=== PATIENT | male | born 1970 | race Two or more races ===

== ENCOUNTER 2025-03-03 08:58 | Observation (INO) ==
[2025-03-03] MEDS: MAGNESIUM SULFATE 1GM / D5W BAG IV ONE (09:23)
[2025-03-03] MEDS: MAGNESIUM SULFATE / D5W 1 GM/100 ML BAG IV SCH (09:23)
[2025-03-03] MEDS: ACETAMINOPHEN 1,000 MG/100 ML VIAL IV STA (09:23)
[2025-03-03 09:30] LABS: Hematocrit (blood only) 44.8 % (42.0-52.0); Hemoglobin 15.6 g/dL (14.0-18.0); Immature Granulocytes # (auto) 0.06 K/uL (0.01-0.20); Immature Granulocytes % (auto) 0.4 %; Mean Corpuscular Hemoglobin 29.1 pg (25.0-34.0); Mean Corpuscular Volume 83.6 fL (80.0-100.0); Platelet Count 237 K/uL (130-400); RDW Standard Deviation 36.8 fL (36.4-46.3); Red Blood Count 5.36 M/uL (4.70-6.10); White Blood Count 16.82 K/ul (4.8-10.8)
[2025-03-03 09:49] LABS: Alanine Aminotransferase 20.0 U/L (7-52); Albumin Globulin Ratio 1.8 (0.9-2); Albumin Level 4.8 gm/dl (3.4-5.0); Alkaline Phosphatase 57.0 U/L (34-104); Anion Gap 11.0 (3-11); Bilirubin,Total 1.1 mg/dl (0.2-1.0); Blood Urea Nitrogen 10.0 mg/dl (6-23); Calcium 8.9 mg/dl (8.6-10.3); Carbon Dioxide 24.0 mmol/L (21-32); Chloride 97.0 mmol/L (98-107); Creatinine Clr Calc Pharmacy 105.2 ml/min; Globulin 2.6 gm/dl (2.5-4.0); Glucose 160.0 mg/dl (70-99(Fasting)); Lipase 24.0 U/L (11-82); Potassium 3.5 mmol/L (3.5-5.1); Sodium 132.0 mmol/L (136-145); Total Protein 7.4 gm/dl (6.0-8.3)
[2025-03-03] MEDS: OPTIRAY 320 100ml IV ONE (10:06)
--- NOTE | 2025-03-03 10:27 | CT Scan Report ---
Clinical History: Abdominal pain Technique: Axial computed tomography images were obtained of the abdomen and pelvis after the administration of intravenous contrast. No prior CT is available for comparison. Findings: The liver is overall of normal size, attenuation, and contour with no sign of cirrhosis or significant fatty infiltration. No liver mass lesion is seen. The portal vein is patent. The gallbladder appears unremarkable. No bile duct dilatation is noted. The spleen is of normal size. There is diminished enhancement of the anterior half of the spleen, likely due to an infarct. The pancreas appears normal with no sign of acute or chronic pancreatitis and no mass lesion noted. The pancreatic duct is of normal caliber. The adrenal glands appear unremarkable. No definite renal or proximal ureteral calculi are seen on this contrast-enhanced study. There is no hydronephrosis or perinephric stranding. No renal mass lesion is identified. There is a small 7 mm right renal cyst The aorta is of normal caliber. No abdominal adenopathy is seen. The stomach appears normal. There is no sign of small bowel obstruction. The colon appears unremarkable. The appendix appears normal also. No free intraperitoneal fluid or air is identified. No distal ureteral or bladder calculi are seen. No bladder mass lesion is evident. The iliac arteries are of normal caliber. No pelvic adenopathy is noted. There are small bilateral inguinal hernias containing only fat The lungs bases appear clear. No fracture is identified. No focal osseous lesion is seen Impression: 1. Splenic infarct 2. Small right renal cyst 3. Bilateral inguinal hernias containing only fat ACT 112: Positive. There are findings on this exam that require communication between the performing entity and the patient following Patient Test Result Information Act ([place] ACT 112) guidelines. Electronically signed by Rl Mojica 03-03-2025 10:26 AM
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
[2025-03-03 11:22] LABS: Appearance Urine Clear (Clear); Glucose Urine UA Negative (Negative)
[2025-03-03] MEDS: ALUMINUM/MAGNESIUM/SIMETH (MAALOX MAX) 30 ML UDC PO STA (11:30)
[2025-03-03] MEDS ORDERED: HEPARIN SOD (PORCINE) 1000 UNIT/ML IV ONE (11:40)
[2025-03-03] MEDS: HEPARIN 25000 UNIT/500 ML D5W 25,000 UNITS/500 ML BAG IV SCH (11:43)
[2025-03-03] MEDS: Heparin IV Adult Wt-Based Standard w/ INITIAL Bolus Protocol IV STA (11:43)
[2025-03-03] MEDS: STAT IV Infusion **Titration per Protocol STA (11:43)
[2025-03-03] MEDS: HEPARIN SOD (PORCINE) 1000 UNIT/ML IV ONE (11:43)
[2025-03-03] MEDS ORDERED: ONDANSETRON INJ 2 MG/ML 2 ML VIAL IV PRN (12:16)
--- NOTE | 2025-03-03 12:28 | History & Physical Report ---
Date of Service March 03, 2025 Assessment & Plan (1) Atrial fibrillation with rapid ventricular response: Plan: -given cardizem 20mg IV bolus -started on cardizem drip -heparin drip -echo -cardiology consulted (2) Splenic infarct: Plan: -likely 2nd to afib -heparin drip started (3) Abdominal distension (gaseous): Plan: -improved with miralax, simethicone, BM History of Present Illness Chief Complaint: Abdominal pain Primary Care Provider: NO PCP Pt is a 54 y/o male with no significant PMH who presents with 1 day history of abdominal pain with patient describing symptoms as "feeling gassy." In the ER his WBC was 16k with lactic acid of 2.6. His EKG showed afib with RVR @160. Pt denies any chest pain, SOB, or palpitations. He had a CT a/p which showed splenic infarct. He was started on heparin drip along with given cardizem bolus and started on cardizem drip. 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 HENT: Negative for neck pain/stiffness, headache, congestion, sore throat, swelling. EYES: Negative for discharge/pain or vision changes. RESP: Negative for cough/hemoptysis and shortness of breath. CV: Negative chest pain, difficulty breathing, palpitations. ABD: Negative pain, nausea, vomiting. : Negative increase frequency, dysuria, blood in urine or stool. MUSC: Negative for muscle aches, edema. SKIN: Negative rash, lesions/sores. NEURO: Negative headache, dizziness, weakness. Physical Exam Physical Exam: GENERAL APPEARANCE NAD, activity normal for age, well developed/ well nourished, no cyanosis, pallor, or diaphoresis. EYES lids/conjunctiva normal. EARS/NOSE/THROAT Mucous membranes moist, nares normal, lips/teeth normal uvula midline without oral pharyngeal erythema, exudate or swelling TMs normal bilaterally. No lymphangitis/lymphedema. HEAD/NECK normocephalic atraumatic, no facial trauma, neck is supple. RESPIRATORY respiratory effort normal, speaks in full sentences, no tripod position, no accessory muscle use. Lungs clear to auscultation without rhonchi, wheezes, rales CARDIAC Regular rate and rhythm, no edema. ABDOMINAL Soft, ND/NT. No evidence of fluid wave. No pulsatile masses on exam, rebound tenderness, Grier sign or pain over Mcburney's point. MUSCLES/EXTREMITIES No abnormal range of motion, no swelling. SKIN Warm, pink and dry. No rashes, dermatoses, petechiae or lesions. NEUROLOGICAL Speech is clear and appropriate. Normal level of consciousness. Gait and coordination are normal. 5/5 strength in all extremities. PSYCH Normal mood and affect. Judgement/competence is appropriate Results & Data Results & Data Vital Signs (Past 12 Hours) Vital Signs Temp Pulse Resp BP Pulse Ox O2 Del Method 03/03/25 11:00 122 H 24 91 Room Air 03/03/25 11:00 170/109 H 03/03/25 09:13 163 H 03/03/25 09:03 36.7 C 159 H 20 166/93 H 97 Room Air PG Care Time/CCT Total # of Minutes Spent Total Time Spent with Patient: Total time spent is greater than 50% in coordination of care (as documented) at patient's floor/unit and/or counseling patient: Coding Level of Care Code 03603 INT INP/OBS CARE 2/55MIN Diagnoses Atrial fibrillation with rapid ventricular response I48.91 Splenic infarct D73.5 Abdominal distension (gaseous) R14.0
[2025-03-03] MEDS ORDERED: MoRPHine SULFATE 4 MG/ML 1 ML CARP\\VIAL IV PRN (12:50)
[2025-03-03] MEDS: SODIUM CHLORIDE 0.9% 1,000 ML IV SCH (13:04)
[2025-03-03] MEDS: SIMETHICONE 40 MG/0.6 ML 30ML PO ONE (13:55)
--- NOTE | 2025-03-03 15:44 | XCELERA ---
[id number] [id number]
--- NOTE | 2025-03-03 15:45 | Cardiology Consultation ---
Date of Consultation March 03, 2025 Assessment & Plan (1) Atrial fibrillation with rapid ventricular response: (2) Splenic infarct: (3) Hypertension: Plan ASSESSMENT/PLAN: 1. Atrial fibrillation with rapid ventricular response: Asymptomatic. Based on some of his history, likely present for at least 5 days with elevated heart rate prior to exercise. He specifically stated he does not want to use beta-leidy. Diltiazem drip has offered heart rate improvement. Start diltiazem 30 mg p.o. every 6 hours and titrate upward oral medication as necessary for heart rate control with hopes of discontinuing diltiazem drip. We discussed treatment strategies but given onset likely greater than 48 hours, recommend rate control for now. Recommend anticoagulation therapy. Likely had embolic event with splenic infarct. Check TSH. Echo with low normal systolic function in the midst of A-fib with RVR. 2. Splenic infarct: Likely due to atrial fibrillation with embolic event. On heparin drip now. As per hospitalist service. 3. Hypertension: Blood pressure elevated. May be related to pain but also has baseline mild hypertension per his report. Diltiazem as above. Can also add MAGALI inhibitor or ARB if needed after titration of calcium channel leidy. Low- sodium diet. 4. Disposition: Cardiology will continue to follow. Patient care communicated with primary hospitalist, Dr. Cleveland. Thank you for allowing me to participate in the care of your patient. Please call for any other questions or concerns. Sincerely, Carlo Linton M.D. History of Present Illness Reason for Consultation: "A-fib with RVR" Requesting Physician: Fidel Cleveland MD Attending Physician: Fidel Cleveland MD History of Present Illness Mr. Edmonds is a very pleasant 54-year-old gentleman with a history significant for hypertension and prediabetes. He does not follow regularly with a physician. He was hospitalized on 03/03/2025 with abdominal pain. He was found to have a splenic infarct and rhythm on presentation was A-fib with RVR. He denies palpitations, chest pain, shortness of breath. He rides a stationary bicycle intermittently and the last was 5 days ago. He typically rides for an hour. He noted that his heart rate before exercising was 120-130 with his most recent exercise approximately 5 days ago. He checks his blood pressure on occasion and it is typically elevated. His heart rate is typically in the 90s but he admits that he has not checked it recently. He continues to have abdominal discomfort but it has improved. It began acutely at 9 PM on 03/02/2025. He had a bowel movement with no improvement. He had nausea and 1 episode of vomiting, which he believes was mostly water. He had an episode of dyspnea on exertion 3 to 4 weeks ago but typically does well and has not had significant dyspnea since then. He does not notice dyspnea with walking. He is tired when he wakes in the morning. He snores. He only sleeps for 5 hours at a time and is fatigued throughout the day. He has not had a sleep study. At home he typically uses fish oil, vitamin D and zinc. He remembers his father being on a beta-leidy and if he missed a dose he had significant issues. He does not want to take beta-leidy. Review of systems: As above. Family history: Father had CAD and PCI. Social history: Quit smoking in 2021. Denies alcohol or drug abuse. He is originally from [place] and moved to the [facility] in 2023. He has 7 children. He is . His and 5 children still live in [place] and he goes back frequently. He has 2 other children that live in [place], [place]. 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 Speaks Wolof and Venezuelan. Unaccompanied. Allergies Allergy/AdvReac Type Severity Reaction Status Date / Time No Known Allergies Allergy Unverified 03/03/25 12:49 Patient History Social History Smoking Status: Former smoker Hx Alcohol Use: No Hx Substance Use: No Preferred Language: Venezuelan Communication Ability: Effective Rn Integrated Required: No Beliefs That Will Affect Care: Faith Faith Beliefs: Denominational Current Living Situation: Alone Feels Safe at Home: Yes Safety Concerns: Feels Safe At This Time Assistive Devices: None Physical Exam Physical Exam: Gen.: No acute distress. Alert and oriented. HEENT: Anicteric sclera. Neck: No JVD. No bruits. Normal carotid upstrokes bilaterally. Cardiac: Irregularly irregular. Tachycardic. Normal S1-S2. No murmurs, rubs, or gallops. Pulmonary: Clear to auscultation bilaterally without wheezes, rales, or rhonchi. Abdomen: Soft, nondistended, with normoactive bowel sounds. No bruits noted. Central and left lower abdomen tender to palpation. Extremities: 2+ radial pulses bilaterally. 2+ posterior tibialis pulses bilaterally. No edema or cyanosis. Results & Data Vital Signs (Past 12 Hours) Vital Signs Temp Pulse Pulse Resp BP BP Pulse Ox 03/03/25 15:26 37.6 C H 100 H 20 171/95 H 95 03/03/25 14:32 101 H 03/03/25 13:50 03/03/25 13:31 36.7 C 108 H 18 164/118 H 97 03/03/25 12:30 99 H 25 H 93 03/03/25 12:30 173/87 H 03/03/25 12:00 124 H 28 H 95 03/03/25 12:00 168/102 H 03/03/25 11:41 158/108 H 03/03/25 11:39 125 H 18 03/03/25 11:31 128/90 03/03/25 11:30 118 H 28 H 95 03/03/25 11:00 122 H 24 91 03/03/25 11:00 170/109 H 03/03/25 09:13 163 H 03/03/25 09:03 36.7 C 159 H 20 166/93 H 97 O2 Del Method 03/03/25 15:26 Room Air 03/03/25 14:32 03/03/25 13:50 Room Air 03/03/25 13:31 Room Air 03/03/25 12:30 Room Air 03/03/25 12:30 03/03/25 12:00 Room Air 03/03/25 12:00 03/03/25 11:41 03/03/25 11:39 03/03/25 11:31 03/03/25 11:30 Room Air 03/03/25 11:00 Room Air 03/03/25 11:00 03/03/25 09:13 03/03/25 09:03 Room Air Laboratory Results Laboratory Results - last 24 hr 03/03/25 03/03/25 03/03/25 09:12 09:20 10:38 WBC 16.82 H RBC 5.36 Hgb 15.6 POC Hgb 16.0 Hct 44.8 POC Hct 47 MCV 83.6 MCH 29.1 MCHC 34.8 RDW Std Deviation 36.8 RDW Coeff of [place] 12.1 Plt Count 237 MPV 11.2 Immature Gran % (Auto) 0.4 Neut % (Auto) 82.0 Lymph % (Auto) 12.1 Morrison % (Auto) 5.4 Eos % (Auto) 0.0 Baso % (Auto) 0.1 Neut # (Auto) 13.81 H Lymph # (Auto) 2.03 Morrison # (Auto) 0.90 H Eos # (Auto) 0.00 Baso # (Auto) 0.02 Immature Gran # (Auto) 0.06 POC Sodium 133 L Sodium 132 L POC Potassium 3.5 Potassium 3.5 POC Chloride 97 L Chloride 97 L Carbon Dioxide 24 POC Total CO2 22 L Anion Gap 11 POC Anion Gap 18.0 POC BUN 10 BUN 10 Creatinine 0.90 POC Creatinine 0.9 Est Cr Clr Drug Dosing 105.2 eGFR 100.24 BUN/Creatinine Ratio 11.1 Glucose 160 H POC Glucose (other) 160 H Lactate 2.6 H* Calcium 8.9 POC Ioniz Calcium Christy 1.04 L Total Bilirubin 1.1 H AST 27 ALT 20 Alkaline Phosphatase 57 Troponin I High Sens 17.6 Total Protein 7.4 Albumin 4.8 Globulin 2.6 Albumin/Globulin Ratio 1.8 Lipase 24 Urine Color Yellow Urine Appearance Clear Urine pH 7.0 Ur Specific Rosman 1.028 Urine Protein Negative Urine Glucose (UA) Negative Urine Ketones Trace H Urine Blood Negative Urine Nitrite Negative Urine Bilirubin Negative Urine Urobilinogen Negative Ur Leukocyte Esterase Negative Urine Comment Diagnostic Findings ECHO 03/03/25: 1. Top normal left ventricular size with low-normal systolic function. EF 50- 55%. No regional wall motion abnormalities. No left ventricular hypertrophy. 2. Normal right ventricular size and systolic function. 3. Mild biatrial dilation. 4. Mild mitral regurgitation. 5. Normal mild pulmonary hypertension. Estimated RVSP 39 mmHg. 6. A-fib with RVR. 7. No prior study available for comparison. ECG personally reviewed from 03/03/2025 at 9:17 AM: A-fib with RVR [address] depression. Labs reviewed and notable for mild hyponatremia, normal potassium, normal renal function, normal transaminase levels, mild leukocytosis, normal hemoglobin. Elevated lactate level Telemetry personally reviewed: Atrial fibrillation with rapid ventricular response. CT abdomen/pelvis 03/03/2025: Splenic infarct. Small right renal cyst. Bilateral inguinal hernias. Medications Administered Current Inpatient Medications Acetaminophen (Acetaminophen 325 Mg Tab) 650 mg PO Q4H PRN PRN Reason: pain/fever Stop: 04/02/25 12:15 Heparin Sodium/Dextrose (Heparin 52580 Unit/500 Ml D5w) 25,000 units in 500 mls @ 29 mls/hr IV .[id number] [facility]; Protocol Stop: 04/02/25 11:44 Last Admin: 03/03/25 11:43 Dose: 1,450 units/hr, 29 mls/hr Diltiazem HCl 125 mg/ Dextrose 125 mls @ 5 mls/hr IV .Q24H [facility]; Protocol Stop: 04/02/25 11:29 Last Admin: 03/03/25 11:42 Dose: 5 mg/hr, 5 mls/hr Sodium Chloride (Nss) 1,000 mls @ 80 mls/hr IV .[id number] [facility] Stop: 03/06/25 12:29 Last Admin: 03/03/25 13:04 Dose: 80 mls/hr Morphine Sulfate (Morphine Sulfate 4 Mg/Ml 1 Ml Carp\\Vial) 4 mg IV Q4H PRN PRN Reason: Pain Stop: 03/17/25 12:49 Ondansetron HCl (Ondansetron Inj 2 Mg/Ml 2 Ml Vial) 4 mg IV Q6H PRN PRN Reason: Nausea Stop: 04/02/25 12:15 Polyethylene Glycol (Polyethylene (Miralax) 17 Gm Pack) 17 gm PO DAILY [facility] Stop: 04/03/25 08:59 Simethicone (Simethicone 40 Mg/0.6 Ml 30ml) 80 mg PO Q6H PRN PRN Reason: Flatulence Stop: 04/02/25 13:30 PG Care Time/CCT Total # of Minutes Spent Total Time Spent with Patient: Total time spent is greater than 50% in coordination of care (as documented) at patient's floor/unit and/or counseling patient: Coding Level of Care Code 84055 INT INP/OBS CARE 3/75MIN Diagnoses Atrial fibrillation with rapid ventricular response I48.91 Splenic infarct D73.5 Hypertension I10
[2025-03-03] MEDS: SIMETHICONE 40 MG/0.6 ML 30ML PO PRN (16:58)
[2025-03-03 17:04] LABS: Thyroid Stimulating Hormone 3.367 uIu/ml (0.300-4.500)
[2025-03-03 17:53] LABS: ANTI-Xa, UFH(UnfractionatedHep 0.47 IU/ml (0.3-0.7)
[2025-03-03] MEDS: ACETAMINOPHEN 325 MG TAB PO PRN (19:21)
[2025-03-03] MEDS ORDERED: SIMETHICONE 80 MG CHEW PO PRN (21:05)
[2025-03-03] MEDS: ALUMINUM/MAGNESIUM/SIMETH (MAALOX MAX) 30 ML UDC PO PRN (21:07)
[2025-03-04 06:21] LABS: Hematocrit (blood only) 40.8 % (42.0-52.0); Hemoglobin 14.3 g/dL (14.0-18.0); Mean Corpuscular Hemoglobin 29.8 pg (25.0-34.0); Mean Corpuscular Volume 85.0 fL (80.0-100.0); Platelet Count 147 K/uL (130-400); RDW Standard Deviation 38.1 fL (36.4-46.3); Red Blood Count 4.80 M/uL (4.70-6.10); White Blood Count 10.15 K/ul (4.8-10.8)
[2025-03-04 06:58] LABS: Anion Gap 8.0 (3-11); Blood Urea Nitrogen 11.0 mg/dl (6-23); Calcium 8.1 mg/dl (8.6-10.3); Carbon Dioxide 24.0 mmol/L (21-32); Chloride 105.0 mmol/L (98-107); Creatinine Clr Calc Pharmacy 104.7 ml/min; Glucose 133.0 mg/dl (70-99(Fasting)); Potassium 3.7 mmol/L (3.5-5.1); Sodium 137.0 mmol/L (136-145)
[2025-03-04 07:04] LABS: ANTI-Xa, UFH(UnfractionatedHep 0.29 IU/ml (0.3-0.7)
[2025-03-04] MEDS: POLYETHYLENE (MIRALAX) 17 GM PACK PO SCH (07:34)
[2025-03-04] MEDS: APIXABAN 5 MG TABLET PO SCH (08:43)
--- NOTE | 2025-03-04 10:18 | Discharge Summary ---
Discharge Summary Date of Service March 04, 2025 Principal Dx & Hospital Course #1 = Principal Diagnosis (1) Atrial fibrillation with rapid ventricular response: -given cardizem 20mg IV bolus -started on cardizem drip -heparin drip -echo -cardiology consult appreciated -pt off caridzem drip, HR controlled on PO -pt on eliquis (2) Splenic infarct: -likely 2nd to afib -heparin drip started -d/c on eliquis (3) Abdominal distension (gaseous): -improved with miralax, simethicone, BM Admission HPI Per Admitting Provider Pt is a 54 y/o male with no significant PMH who presents with 1 day history of abdominal pain with patient describing symptoms as "feeling gassy." In the ER his WBC was 16k with lactic acid of 2.6. His EKG showed afib with RVR @160. Pt denies any chest pain, SOB, or palpitations. He had a CT a/p which showed splenic infarct. He was started on heparin drip along with given cardizem bolus and started on cardizem drip. Discharge Exam GENERAL APPEARANCE NAD, activity normal for age, well developed/ well nourished, no cyanosis, pallor, or diaphoresis. EYES lids/conjunctiva normal. EARS/NOSE/THROAT Mucous membranes moist, nares normal, lips/teeth normal uvula midline without oral pharyngeal erythema, exudate or swelling TMs normal bilaterally. No lymphangitis/lymphedema. HEAD/NECK normocephalic atraumatic, no facial trauma, neck is supple. RESPIRATORY respiratory effort normal, speaks in full sentences, no tripod position, no accessory muscle use. Lungs clear to auscultation without rhonchi, wheezes, rales CARDIAC Regular rate and rhythm, no edema. ABDOMINAL Soft, ND/NT. No evidence of fluid wave. No pulsatile masses on exam, rebound tenderness, Grier sign or pain over Mcburney's point. MUSCLES/EXTREMITIES No abnormal range of motion, no swelling. SKIN Warm, pink and dry. No rashes, dermatoses, petechiae or lesions. NEUROLOGICAL Speech is clear and appropriate. Normal level of consciousness. Gait and coordination are normal. 5/5 strength in all extremities. PSYCH Normal mood and affect. Judgement/competence is appropriate Discharge Plan Discharge Items Patient Disposition: Home - Self-Care Reason For Visit: ABD PAIN Discharge Diagnosis: afib with RVR Condition on Discharge: Serious Activity: Resume your previous activity Non-emergency contact: Primary Care Provider Call non-emergency contact if: you have any medication questions Follow-up/Referrals: PCP,NO [Primary Care Provider] - Diet: Regular Addtl Attending Provider Instructions: Follow up with cardiology in 2 weeks Pending Studies at Discharge: No Stand-Alone Forms: My [employer], Smoking Cessation Medications and DC Order Prescriptions: New Eliquis 5 mg Tablet 5 mg PO BID Qty: 60 0RF diltiazem HCl [Cardizem CD] 180 mg capsule,extended release 24hr 180 mg PO DAILY Qty: 30 0RF Discharge Orders: Discharge Order (Routine); Ordered 03/04/25 Ordered By: Fidel Cleveland Admission Data Admit Date/Time: 03/03/25 12:16 Attending Provider: Fidel Cleveland Admit Provider: Fidel Cleveland Primary Care Provider: PCP,NO Other Providers: Khanh Linton; Fidel Cleveland Hospital Stay Data Consultations 03/03/25 12:16 Consult Cardiology Routine 03/03/25 12:37 ED Decision to Admit Stat Diagnostic Imagining Performed 03/03/25 09:14 CT abd pelvis IV con only Stat Pending Results Patient Have Any Pending Studies at Discharge: No Discharge Instructions Given to Patient (Per Discharging Provider) Follow up with cardiology in 2 weeks Total Time Total Time Spent Total Time Spent (In Minutes): 50 Coding Level of Care Code 13769 INP/OBS DISCH >30 MIN Diagnoses Atrial fibrillation with rapid ventricular response I48.91 Splenic infarct D73.5 Abdominal distension (gaseous) R14.0
--- NOTE | 2025-03-04 13:31 | Cardiology Progress Note ---
Date of Service March 04, 2025 Assessment & Plan (1) Atrial fibrillation with rapid ventricular response: (2) Splenic infarct: (3) Hypertension: Plan ASSESSMENT/PLAN: 1. Atrial fibrillation with rapid ventricular response: Asymptomatic. Based on some of his history, likely present for at least 5 days before presentation with elevated heart rate prior to exercise. Heart rate improved with oral diltiazem which was increased to 60 mg p.o. every 6 hours this morning. Continue current dose. Add metoprolol 25 mg p.o. every 6 hours. Recommend anticoagulation therapy. Likely had embolic event with splenic infarct. Echo with low normal systolic function in the midst of A-fib with RVR. Could consider cardioversion after uninterrupted therapeutic anticoagulation therapy for 4 weeks or more. 2. Splenic infarct: Likely due to atrial fibrillation with embolic event. On anticoagulation therapy now. As per hospitalist service. 3. Hypertension: Blood pressure improved but still intermittently elevated. Blood pressure would likely further improved with addition of beta-leidy. Continue diltiazem. Low-sodium diet. 4. Disposition: Cardiology will continue to follow. Patient care communicated with primary hospitalist, Dr. Cleveland. Recommend ongoing hospitalization to improve heart rate. Patient agreeable to stay. Patient care discussed with nursing staff. Admission and Anticipated Discharge Date Admission Date: March 03, 2025 Subjective Patient seen earlier this afternoon. He had already been discharged by the spitalist service however his heart rate is not well-controlled. His resting heart rate in bed is in the low 100s. He denies palpitations, chest pain, syncope, shortness of breath, melena, hematochezia, hematuria, or edema. His abdominal discomfort that he had on presentation has resolved but he has some left flank pain, but less severe than his initial abdominal discomfort. Overall, he feels much better. He was asked to walk in the hallway while I watched the telemetry. He denied symptoms but his heart rate went into the 140s quickly. He informed me that his brothers are on beta-blockers and tolerating them well. He is not agreeable to take a beta-leidy. His son was present at the bedside. Physical Exam Physical Exam: Gen.: No acute distress. Alert and oriented. HEENT: Anicteric sclera. Neck: No JVD. Cardiac: Irregularly irregular. Tachycardic. Normal S1-S2. No murmurs, rubs, or gallops. Pulmonary: Clear to auscultation bilaterally without wheezes, rales, or rhonchi. Abdomen: Soft, nondistended, with normoactive bowel sounds. No bruits noted. Left flank/abdominal tender. Extremities: 2+ radial pulses bilaterally. 2+ posterior tibialis pulses bilaterally. No edema or cyanosis. Results & Data Vital Signs (Past 12 Hours) Vital Signs Temp Pulse Pulse Resp BP Pulse Ox O2 Del Method 03/04/25 12:04 36.9 C 95 H 20 146/93 H 96 Room Air 03/04/25 10:44 36.9 C 105 H 20 136/87 91 03/04/25 07:08 106 H 03/04/25 07:01 36.9 C 105 H 20 136/87 91 Room Air 03/04/25 02:35 37.3 C 101 H 16 138/74 93 Room Air Intake & Output 03/02/25 03/03/25 03/04/25 03/05/25 06:59 06:59 06:59 06:59 Intake Total 2378.533 / 2378.533 706.383 / 706.383 Balance 2378.533 / 2378.533 706.383 / 706.383 Weight 218 lb 14.704 oz 218 lb 14.704 oz Laboratory Results Laboratory Results - last 24 hr 03/03/25 03/03/25 03/04/25 09:12 17:20 05:31 WBC 10.15 RBC 4.80 Hgb 14.3 Hct 40.8 L MCV 85.0 MCH 29.8 MCHC 35.0 RDW Std Deviation 38.1 RDW Coeff of Salvador 12.2 Plt Count 147 MPV 11.5 Heparin Anti-Xa, Unfract 0.47 0.29 L Sodium 137 Potassium 3.7 Chloride 105 Carbon Dioxide 24 Anion Gap 8 BUN 11 Creatinine 0.90 Est Cr Clr Drug Dosing 104.7 eGFR 100.24 BUN/Creatinine Ratio 12.2 Glucose 133 H Calcium 8.1 L TSH 3.367 03/04/25 13:11 WBC RBC Hgb Hct MCV MCH MCHC RDW Std Deviation RDW Coeff of Salvador Plt Count MPV Heparin Anti-Xa, Unfract Pending Sodium Potassium Chloride Carbon Dioxide Anion Gap BUN Creatinine Est Cr Clr Drug Dosing eGFR BUN/Creatinine Ratio Glucose Calcium TSH Diagnostic Findings Labs reviewed and notable for normal potassium, normal renal function, normal blood counts, normal TSH. Telemetry personally reviewed: A-fib with RVR with more significant tachycardia with brief exertion in the hallway) heart rate into the 140s bpm). Medications Administered Current Inpatient Medications Acetaminophen (Acetaminophen 325 Mg Tab) 650 mg PO Q4H PRN PRN Reason: pain/fever Stop: 04/02/25 12:15 Last Admin: 03/03/25 19:21 Dose: 650 mg Al Hydrox/Mg Hydrox/Simethicone (Aluminum/Magnesium/Simeth (Maalox Max) 30 Ml Udc) 15 ml PO Q6H PRN PRN Reason: Gas or Constipation Stop: 04/02/25 21:01 Last Admin: 03/03/25 21:07 Dose: 15 ml Apixaban (Apixaban 5 Mg Tablet) 5 mg PO BID [facility] Stop: 04/03/25 08:59 Last Admin: 03/04/25 08:43 Dose: 5 mg Diltiazem HCl (Diltiazem Hcl 60 Mg Tab) 60 mg PO Q6H [facility] Stop: 04/02/25 16:59 Last Admin: 03/04/25 08:49 Dose: 60 mg Diltiazem HCl 125 mg/ Dextrose 125 mls @ 5 mls/hr IV .Q24H [facility]; Protocol Stop: 04/02/25 11:29 Last Admin: 03/04/25 11:30 Dose: Not Given Sodium Chloride (Nss) 1,000 mls @ 80 mls/hr IV .[id number] [facility] Stop: 03/06/25 12:29 Last Admin: 03/04/25 11:30 Dose: Not Given Metoprolol Tartrate (Metoprolol Tartrate 25 Mg Tab) 25 mg PO Q6H [facility] Stop: 04/03/25 13:29 Morphine Sulfate (Morphine Sulfate 4 Mg/Ml 1 Ml Carp\Vial) 4 mg IV Q4H PRN PRN Reason: Pain Stop: 03/17/25 12:49 Ondansetron HCl (Ondansetron Inj 2 Mg/Ml 2 Ml Vial) 4 mg IV Q6H PRN PRN Reason: Nausea Stop: 04/02/25 12:15 Polyethylene Glycol (Polyethylene (Miralax) 17 Gm Pack) 17 gm PO DAILY [facility] Stop: 04/03/25 08:59 Last Admin: 03/04/25 07:34 Dose: Not Given Simethicone (Simethicone 40 Mg/0.6 Ml 30ml) 80 mg PO Q6H PRN PRN Reason: Flatulence Stop: 04/02/25 13:30 Last Admin: 03/03/25 16:58 Dose: 80 mg Simethicone (Simethicone 80 Mg Chew) 80 mg PO Q6H PRN PRN Reason: Flatulence Stop: 04/02/25 21:04 PG Care Time/CCT Total # of Minutes Spent Total Time Spent with Patient: Total time spent is greater than 50% in coordination of care (as documented) at patient's floor/unit and/or counseling patient: Coding Level of Care Code 58861 SUB INP/OBS CARE 3/50MIN Diagnoses Atrial fibrillation with rapid ventricular response I48.91 Splenic infarct D73.5 Hypertension I10
[2025-03-04 13:52] LABS: ANTI-Xa, UFH(UnfractionatedHep 0.51 IU/ml (0.3-0.7)
[2025-03-04] MEDS: METOPROLOL TARTRATE 25 MG TAB PO SCH (14:21)
[2025-03-04 19:27] VITALS: RESP 18
--- NOTE | 2025-03-05 06:14 | Electrocardiogram Report ---
Test Reason : Blood Pressure : */* mmHG Vent. Rate : 163 BPM Atrial Rate : * BPM P-R Int : * ms QRS Dur : 78 ms QT Int : 280 ms P-R-T Axes : * 60 267 degrees QTcB Int : 461 ms Atrial fibrillation with rapid ventricular response Nonspecific ST abnormality Abnormal ECG No previous ECGs available Confirmed by Khanh Linton ([id number]) on 03/05/2025 6:14:12 AM Referred By: REFERRED SELF Confirmed By: Khanh Linton
--- NOTE | 2025-03-05 06:15 | Electrocardiogram Report ---
Test Reason : Blood Pressure : */* mmHG Vent. Rate : 146 BPM Atrial Rate : * BPM P-R Int : * ms QRS Dur : 78 ms QT Int : 206 ms P-R-T Axes : * 55 233 degrees QTcB Int : 321 ms Atrial fibrillation with rapid ventricular response Marked ST abnormality, possible inferolateral subendocardial injury Abnormal ECG When compared with ECG of 03-Mar-2025 09:09, No significant change Confirmed by Khanh Linton ([id number]) on 03/05/2025 6:14:41 AM Referred By: REFERRED SELF Confirmed By: Khanh Linton
[2025-03-05 06:30] LABS: Hematocrit (blood only) 43.0 % (42.0-52.0); Hemoglobin 14.9 g/dL (14.0-18.0); Mean Corpuscular Hemoglobin 29.8 pg (25.0-34.0); Mean Corpuscular Volume 86.0 fL (80.0-100.0); Platelet Count 124 K/uL (130-400); RDW Standard Deviation 39.0 fL (36.4-46.3); Red Blood Count 5.00 M/uL (4.70-6.10); White Blood Count 11.89 K/ul (4.8-10.8)
[2025-03-05 06:59] LABS: Anion Gap 8.0 (3-11); Blood Urea Nitrogen 14.0 mg/dl (6-23); Calcium 8.5 mg/dl (8.6-10.3); Carbon Dioxide 24.0 mmol/L (21-32); Chloride 103.0 mmol/L (98-107); Creatinine Clr Calc Pharmacy 97.1 ml/min; Glucose 132.0 mg/dl (70-99(Fasting)); Potassium 3.9 mmol/L (3.5-5.1); Sodium 135.0 mmol/L (136-145)
[2025-03-05 07:03] VITALS: BP 139/70; TEMP 99.3; O2SAT 93
--- NOTE | 2025-03-05 08:05 | Cardiology Progress Note ---
Date of Service March 05, 2025 Assessment & Plan (1) Atrial fibrillation with rapid ventricular response: (2) Splenic infarct: (3) Hypertension: Plan ASSESSMENT/PLAN: 1. Atrial fibrillation with rapid ventricular response: Asymptomatic. Based on some of his history, likely present for at least 5 days before presentation with elevated heart rate prior to exercise. Heart rate improved with combination of diltiazem and metoprolol. Bradycardic on 60 mg of diltiazem p.o. every 6 hours after a total of 50 mg of metoprolol. Heart rate well-controlled today on 30 mg every 6 hours of diltiazem and 25 mg twice daily of metoprolol. Recommend diltiazem CD 120 mg daily and metoprolol succinate 50 mg daily on discharge. Recommend anticoagulation therapy. Likely had embolic event with splenic infarct. Echo with low normal systolic function in the midst of A-fib with RVR. Could consider cardioversion after uninterrupted therapeutic anticoagulation therapy for 4 weeks or more. 2. Splenic infarct: Likely due to atrial fibrillation with embolic event. On anticoagulation therapy now. As per hospitalist service. 3. Hypertension: Blood pressure improved with rate controlling medications. Plan as above. Low-sodium diet. 4. Oxygenation: He is concerned about his low normal oxygen saturation. Chest x-ray ordered. Asymptomatic. He appears euvolemic. 5. Thrombocytopenia: Mild but new. As per hospitalist service. 6. Disposition: Cardiology sign off at this time. Can be discharged home from a cardiology perspective. Patient care communicated with primary hospitalist, Dr. Cleveland. Arranging cardiology follow-up in the next week or so to reevaluate heart rate on current medical therapy. Admission and Anticipated Discharge Date Admission Date: March 03, 2025 Subjective Patient seen this morning. He denies chest pain, shortness of breath, palpitations, syncope, near syncope, edema, or bleeding. He was concerned that his oxygen saturation was 93% on room air, stating it is lower than usual. Despite this, he denies dyspnea. He ambulated in the hallway and his heart rate remained in the 90s up to 112 bpm. Last evening, he was mildly bradycardic after initiation of metoprolol and rate controlling medications were then reduced. He was unaccompanied. Physical Exam Physical Exam: Gen.: No acute distress. Alert and oriented. HEENT: Anicteric sclera. Neck: No JVD. Cardiac: Irregularly irregular. Normal rate. Normal S1-S2. No murmurs, rubs, or gallops. Pulmonary: Clear to auscultation bilaterally without wheezes, rales, or rhonchi. Abdomen: Soft, nondistended, with normoactive bowel sounds. No bruits noted. Left flank/abdominal mildly tender. Extremities: 2+ radial pulses bilaterally. 2+ posterior tibialis pulses bilaterally. No edema or cyanosis. Results & Data Vital Signs (Past 12 Hours) Vital Signs Temp Pulse Pulse Resp BP Pulse Ox O2 Del Method 03/05/25 07:02 37.4 C 90 18 139/70 93 Room Air 03/05/25 05:33 94 H 03/05/25 02:36 36.9 C 89 18 108/69 96 Room Air 03/04/25 22:44 37.2 C 88 18 141/73 H 94 Room Air 03/04/25 22:04 83 Intake & Output 03/03/25 03/04/25 03/05/25 03/06/25 06:59 06:59 06:59 06:59 Intake Total 2378.533 / 2378.533 1706.383 / 1706.383 Balance 2378.533 / 2378.533 1706.383 / 1706.383 Weight 218 lb 14.704 oz 218 lb 14.704 oz Laboratory Results Laboratory Results - last 24 hr 03/04/25 03/05/25 13:11 05:18 WBC 11.89 H RBC 5.00 Hgb 14.9 Hct 43.0 MCV 86.0 MCH 29.8 MCHC 34.7 RDW Std Deviation 39.0 RDW Coeff of [place] 12.4 Plt Count 124 L MPV 11.7 Heparin Anti-Xa, Unfract 0.51 Sodium 135 L Potassium 3.9 Chloride 103 Carbon Dioxide 24 Anion Gap 8 BUN 14 Creatinine 0.97 Est Cr Clr Drug Dosing 97.1 eGFR 91.62 BUN/Creatinine Ratio 14.4 Glucose 132 H Calcium 8.5 L Diagnostic Findings Labs reviewed and notable for normal potassium, stable renal function, normal hemoglobin, mild leukocytosis. Mild thrombocytopenia. Telemetry personally reviewed: A-fib with heart rate mostly in the 80s this morning, increasing to 112 bpm while ambulating in the hallway. Medications Administered Current Inpatient Medications Acetaminophen (Acetaminophen 325 Mg Tab) 650 mg PO Q4H PRN PRN Reason: pain/fever Stop: 04/02/25 12:15 Last Admin: 03/05/25 07:27 Dose: 650 mg Al Hydrox/Mg Hydrox/Simethicone (Aluminum/Magnesium/Simeth (Maalox Max) 30 Ml Udc) 15 ml PO Q6H PRN PRN Reason: Gas or Constipation Stop: 04/02/25 21:01 Last Admin: 03/03/25 21:07 Dose: 15 ml Apixaban (Apixaban 5 Mg Tablet) 5 mg PO BID RO Stop: 04/03/25 08:59 Last Admin: 03/04/25 20:58 Dose: 5 mg Diltiazem HCl (Diltiazem Hcl 30 Mg Tab) 30 mg PO Q6H [facility] Stop: 04/03/25 19:59 Last Admin: 03/05/25 07:22 Dose: 30 mg Diltiazem HCl 125 mg/ Dextrose 125 mls @ 5 mls/hr IV .Q24H [facility]; Protocol Stop: 04/02/25 11:29 Last Admin: 03/04/25 11:30 Dose: Not Given Metoprolol Tartrate (Metoprolol Tartrate 25 Mg Tab) 25 mg PO BID [facility] Stop: 04/04/25 08:59 Morphine Sulfate (Morphine Sulfate 4 Mg/Ml 1 Ml Carp\Vial) 4 mg IV Q4H PRN PRN Reason: Pain Stop: 03/17/25 12:49 Ondansetron HCl (Ondansetron Inj 2 Mg/Ml 2 Ml Vial) 4 mg IV Q6H PRN PRN Reason: Nausea Stop: 04/02/25 12:15 Polyethylene Glycol (Polyethylene (Miralax) 17 Gm Pack) 17 gm PO DAILY [facility] Stop: 04/03/25 08:59 Last Admin: 03/04/25 07:34 Dose: Not Given Simethicone (Simethicone 40 Mg/0.6 Ml 30ml) 80 mg PO Q6H PRN PRN Reason: Flatulence Stop: 04/02/25 13:30 Last Admin: 03/03/25 16:58 Dose: 80 mg Simethicone (Simethicone 80 Mg Chew) 80 mg PO Q6H PRN PRN Reason: Flatulence Stop: 04/02/25 21:04 PG Care Time/CCT Total # of Minutes Spent Total Time Spent with Patient: Total time spent is greater than 50% in coordination of care (as documented) at patient's floor/unit and/or counseling patient: Coding Level of Care Code 75684 SUB INP/OBS CARE 3/50MIN Diagnoses Atrial fibrillation with rapid ventricular response I48.91 Splenic infarct D73.5 Hypertension I10
[2025-03-05] MEDS: METOPROLOL TARTRATE 25 MG TAB PO SCH (08:49)
--- NOTE | 2025-03-05 10:37 | Hospitalist Progress Note ---
Date of Service March 05, 2025 Assessment & Plan (1) Atrial fibrillation with rapid ventricular response: Plan: -given cardizem 20mg IV bolus -started on cardizem drip -heparin drip -echo -cardiology consult appreciated -pt off caridzem drip, HR controlled on PO -pt on eliquis -cardiology recommending d/c on metoprolol ER 50mg Daily along with cardizem 120 CD daily (2) Splenic infarct: Plan: -likely 2nd to afib -heparin drip started -d/c on eliquis (3) Abdominal distension (gaseous): Plan: -improved with miralax, simethicone, BM Admission and Anticipated Discharge Date Admission Date: March 03, 2025 Subjective No events overnight pt resting comfortably in bed. Review of Systems Review of Systems: CONST: Negative for fever, body aches and chills. HENT: Negative for neck pain/stiffness, headache, congestion, sore throat, swelling. EYES: Negative for discharge/pain or vision changes. RESP: Negative for cough/hemoptysis and shortness of breath. CV: Negative chest pain, difficulty breathing, palpitations. ABD: Negative pain, nausea, vomiting. : Negative increase frequency, dysuria, blood in urine or stool. MUSC: Negative for muscle aches, edema. SKIN: Negative rash, lesions/sores. NEURO: Negative headache, dizziness, weakness. Physical Exam Physical Exam: GENERAL APPEARANCE NAD, activity normal for age, well developed/ well nourished, no cyanosis, pallor, or diaphoresis. EYES lids/conjunctiva normal. EARS/NOSE/THROAT Mucous membranes moist, nares normal, lips/teeth normal uvula midline without oral pharyngeal erythema, exudate or swelling TMs normal bilaterally. No lymphangitis/lymphedema. HEAD/NECK normocephalic atraumatic, no facial trauma, neck is supple. RESPIRATORY respiratory effort normal, speaks in full sentences, no tripod position, no accessory muscle use. Lungs clear to auscultation without rhonchi, wheezes, rales CARDIAC Regular rate and rhythm, no edema. ABDOMINAL Soft, ND/NT. No evidence of fluid wave. No pulsatile masses on exam, rebound tenderness, Grier sign or pain over Mcburney's point. MUSCLES/EXTREMITIES No abnormal range of motion, no swelling. SKIN Warm, pink and dry. No rashes, dermatoses, petechiae or lesions. NEUROLOGICAL Speech is clear and appropriate. Normal level of consciousness. Gait and coordination are normal. 5/5 strength in all extremities. PSYCH Normal mood and affect. Judgement/competence is appropriate Results & Data Results & Data Vital Signs (Past 12 Hours) Vital Signs Temp Pulse Pulse Resp BP Pulse Ox O2 Del Method 03/05/25 07:02 37.4 C 90 18 139/70 93 Room Air 03/05/25 05:33 94 H 03/05/25 02:36 36.9 C 89 18 108/69 96 Room Air 03/04/25 22:44 37.2 C 88 18 141/73 H 94 Room Air PG Care Time/CCT Total # of Minutes Spent Total Time Spent with Patient: Total time spent is greater than 50% in coordination of care (as documented) at patient's floor/unit and/or counseling patient: Coding Level of Care Code 26550 SUB INP/OBS CARE 2/35MIN Diagnoses Atrial fibrillation with rapid ventricular response I48.91 Splenic infarct D73.5 Abdominal distension (gaseous) R14.0
[2025-03-05 10:51] VITALS: PULSE 90
--- NOTE | 2025-03-05 11:04 | XRay Report ---
TWO VIEW CHEST CLINICAL HISTORY: Atrial fibrillation. FINDINGS: PA and lateral chest radiographs are obtained. No prior studies are available for compariso n at the time of dictation. The cardiac silhouette is mildly enlarged noting atherosclerotic calcific ation of the thoracic aorta. Atelectasis is seen at the left lung base. Suspect trace left pleural ef fusion. There is no pneumothorax. The bony thorax appears intact. IMPRESSION: 1. The cardiac silhouette is mildly enlarged. There is no radiographic evidence of congestive failure . 2. Suspect a trace left pleural effusion. ACT 112: Negative or not required by law. Electronically signed by: Arnaldo George M.D. 03/05/2025 11:03 AM
--- NOTE | 2025-03-05 21:57 | Electrocardiogram Report ---
Test Reason : Blood Pressure : */* mmHG Vent. Rate : 74 BPM Atrial Rate : * BPM P-R Int : * ms QRS Dur : 76 ms QT Int : 344 ms P-R-T Axes : * 46 231 degrees QTcB Int : 381 ms Atrial fibrillation Abnormal ECG When compared with ECG of 03-Mar-2025 09:17, Vent. rate has decreased by [address] less depressed in Lateral leads Confirmed by Khanh Linton ([id number] on 03/05/2025 9:57:08 PM Referred By: REFERRED SELF Confirmed By: Khanh Linton
== END 2025-03-05 11:30 | disposition home or self-care (01) | DRG 310 ==
LOC: ED 08:58 → INTOOBSV 12:16 → 4W 12:16